=== PATIENT | male | born 1985 | race American Indian/Alaskan Native ===

== ENCOUNTER 2016-09-06 10:08 | Emergency (ER) | payer MEDICAID, OTHER ==
--- NOTE | 2016-09-06 10:41 | C.PDOC ---
History Of Present Illness 31 yr old male presents to the ER with complaints of diffuse abdominal pain and vomiting since 5pm last night. Patient states he "ate some bad chicken" around 1pm yesterday. States he believes the chicken was not thoroughly cooked. Patient denies any medical history, surgical history, alcohol use, drug use, diarrhea, dysuria, weakness or numbness. Time Seen by Provider: 09/06/16 10:25 Chief Complaint (Nursing): Abdominal Pain History Per: Patient History/Exam Limitations: no limitations Onset/Duration Of Symptoms: Sudden Onset (Last night around 5pm ) Past Medical History Reviewed: Historical Data, Nursing Documentation, Vital Signs Vital Signs: Last Vital Signs Temp 98.5 F 09/06/16 15:52 Pulse 87 09/06/16 15:52 Resp 17 09/06/16 15:52 BP 134/76 09/06/16 15:52 Pulse Ox 99 09/06/16 15:52 - Medical History PMH: Anxiety, Asthma Family History: States: No Known Family Hx - Social History Hx Alcohol Use: No Hx Substance Use: Yes Review Of Systems Except As Marked, All Systems Reviewed And Found Negative. Gastrointestinal: Positive for: Vomiting, Abdominal Pain (Diffuse ). Negative for: Diarrhea Genitourinary: Negative for: Dysuria Neurological: Negative for: Weakness, Numbness Physical Exam - Physical Exam Appears: Non-toxic, No Acute Distress Skin: Warm, Dry Head: Atraumatic, Normacephalic Eye(s): bilateral: Normal Inspection, PERRL, EOMI Oral Mucosa: Moist Throat: Normal, No Erythema, No Exudate, No Drooling Chest: Symmetrical, No Tenderness Cardiovascular: Rhythm Regular, No Murmur Respiratory: Normal Breath Sounds, No Rales, No Rhonchi, No Stridor, No Wheezing Gastrointestinal/Abdominal: Soft, Tenderness (Low abdominal tenderness), No Guarding, No Rebound Extremity: Normal ROM, No Swelling Neurological/Psych: Oriented x3, Normal Speech, Normal Motor ED Course And Treatment - Laboratory Results Result Diagrams: 09/06/16 11:08 09/06/16 11:08 O2 Sat by Pulse Oximetry: 98 - CT Scan/US CT - Abd & Pelvis Other Rad Studies (CT/US): Read By Radiologist, Radiology Report Reviewed CT/US Interpretation: PROCEDURE: CT abdomen pelvis dated 09/06/2016. HISTORY: abdominal pain. COMPARISON: None. TECHNIQUE: Contiguous axial images of the abdomen and pelvis performed following intravenous injection of approximately 100 cc Visipaque 320 contrast material. Coronal and Sagittal reformats generated. Radiation dose: Total exam DLP = 248.69 mGy-cm. This CT exam was performed using one or more of the following dose reduction techniques : Automated exposure control, adjustment of the mA and/or kV according to patient size, and/or use of iterative reconstruction technique. FINDINGS: LOWER THORAX: Lung bases clear. No infiltrate effusion or basilar pneumothorax. Tiny hiatal hernia. LIVER: Liver exhibits normal size measuring approximately 16 cm in CC dimension. No obvious hepatic mass or collection however there does appear to be some very minimal diffuse fatty hepatic infiltration. . . Portal and splenic veins are opacified. GALLBLADDER AND BILE DUCTS: Unremarkable. PANCREAS: The the there are no obvious pancreatic masses or collections. Pancreatic duct is visible lobe does not appear significantly dilated. SPLEEN: Spleen exhibits normal size and attenuation pattern. ADRENALS: No adrenal lesions. KIDNEYS AND URETERS: Kidneys demonstrate symmetric nephrograms. No evidence of nephrolithiasis or hydronephrosis. Tiny low-attenuation focus post oral lateral and superior margin cortex right kidney likely representing cyst. BLADDER: Urinary bladder is markedly distended. Rule out urinary retention and/or bladder outlet obstruction. REPRODUCTIVE: Prostate gland measures approximately 3.2 cm in transverse dimension. APPENDIX: Appendix is not seen with any certainty on this exam however no definitive inflammatory changes right lower quadrant of the abdomen. BOWEL: Evaluation of the bowel is limited due to the lack of oral contrast material. Stomach is incompletely distended which presumably accounts for thick-walled appearance. Gastritis not excluded. Visualized loops of small bowel exhibit normal contour and caliber. No evidence acute mechanical small bowel obstruction. Stool and air seen throughout the colon. No definitive mural wall thickening. PERITONEUM: Unremarkable. No fluid collection. No free air. LYMPH NODES: Unremarkable. No enlarged lymph nodes. VASCULATURE: Unremarkable. No aortic aneurysm. BONES: Osseous structures intact. OTHER FINDINGS: None. IMPRESSION: Mild fatty hepatic infiltration. Probable tiny cortical cyst upper pole right kidney. Marked urinary bladder distention; rule out urinary retention or bladder outlet obstruction. Appendix is not seen with any certainty on this exam however no obvious inflammatory changes right lower quadrant of the abdomen. Findings discussed with Dr. Jung at approximately 1:17 p.m. with written down and read back verification. Medical Decision Making Medical Decision Making: PLAN: * CT - Abd & Pelvis * CBC * CMP * Urinalysis * Morphine IVP * Zofran IVP * Sodium Chloride IV 1518 susp food poisning vs AGE. the pt feels much better. abdomen is soft and non-tender. he is comfortable w dc. follow up and return precautions advised. Disposition - Disposition Referrals: [facility] [Outside] Disposition: HOME/ ROUTINE Disposition Time: 15:18 Condition: IMPROVED Additional Instructions: Please follow up with your doctor. Return to the ER for any worsening symptoms, fever, or for any other concerns. Prescriptions: Ondansetron ODT [Zofran ODT] 4 mg PO Q4H PRN #10 odt PRN Reason: Nausea/Vomiting Forms: General Discharge Instructions - Clinical Impression Clinical Impression: Nausea and vomiting, Abdominal pain - Scribe Statement The provider has reviewed the documentation as recorded by the Roelibe Kathy Narayan Provider Attestation: All medical record entries made by the Roelibe were at my direction and personally dictated by me. I have reviewed the chart and agree that the record accurately reflects my personal performance of the history, physical exam, medical decision making, and the department course for this patient. I have also personally directed, reviewed, and agree with the discharge instructions and disposition.
[2016-09-06] MEDS ORDERED: Sodium Chloride 0.9% 1,000 ML IV ONE ×2 (10:42→13:50)
[2016-09-06] MEDS ORDERED: Sodium Chloride 0.9% 1,000 ML ONE ×2 (11:08→13:55)
[2016-09-06 11:15] LABS: BASO % 0.4 % (0.0-2.0); EOS % 0.1 % (0.0-4.0); HEMOGLOBIN 14.6 g/dL (12.0-18.0); LYMPH # 1.5 K/uL (1.0-4.3); LYMPH % 17.5 % (20.0-40.0); MEAN CELL VOLUME 88.1 fL (80.0-94.0); MEAN CORPUSCULAR HEMOGLOBIN 29.5 pg (27.0-31.0); MEAN CORPUSCULAR HGB CONC 33.4 g/dL (33.0-37.0); MEAN PLATELET VOLUME 7.6 fL (7.2-11.7); MONO # 0.6 K/uL (0.0-0.8); MONO % 6.8 % (0.0-10.0); NEUT # 6.3 K/uL (1.8-7.0); NEUT % 75.2 % (50.0-75.0); RBC 4.96 Mil/uL (4.40-5.90); WHITE BLOOD COUNT 8.4 K/uL (4.8-10.8)
[2016-09-06 11:17] LABS: URINE BILIRUBIN NEGATIVE (NEGATIVE); URINE BLOOD 1+ (NEGATIVE); URINE CLARITY Clear (Clear); URINE COLOR Straw (YELLOW); URINE GLUCOSE (UA) NORMAL (Normal); URINE LEUKOCYTE ESTERASE NEG Leu/uL (Negative); URINE NITRATE NEGATIVE (NEGATIVE); URINE PROTEIN NEGATIVE (NEGATIVE); URINE UROBILINOGEN NORMAL mg/dL (0.2-1.0)
[2016-09-06 11:22] LABS: ALBUMIN 4.5 g/dL (3.5-5.0)
[2016-09-06 11:25] LABS: ALB/GLOB RATIO 1.4 (1.0-2.1); AST/SGOT 32 U/L (17-59); GFR AFRICAN-AMERICAN > 60; GFR NON-AFRICAN AMERICAN > 60
[2016-09-06 11:26] LABS: ALT/SGPT 20 U/L (21-72); BLOOD UREA NITROGEN 15 mg/dL (9-20); CALCIUM 9.6 mg/dl (8.6-10.4); LIPASE 38 U/L (23-300)
[2016-09-06] MEDS ORDERED: Iodixanol 320 MG/ML 100 ML BOTTLE IV ONE (12:30)
--- NOTE | 2016-09-06 13:20 | CT ---
PROCEDURE: CT abdomen pelvis dated 09/06/2016. HISTORY: abdominal pain COMPARISON: None. TECHNIQUE: Contiguous axial images of the abdomen and pelvis performed following intravenous injection of approximately 100 cc Visipaque 320 contrast material. Coronal and Sagittal reformats generated. Radiation dose: Total exam DLP = 248.69 mGy-cm. This CT exam was performed using one or more of the following dose reduction techniques: Automated exposure control, adjustment of the mA and/or kV according to patient size, and/or use of iterative reconstruction technique. FINDINGS: LOWER THORAX: Lung bases clear. No infiltrate effusion or basilar pneumothorax. Tiny hiatal hernia. LIVER: Liver exhibits normal size measuring approximately 16 cm in CC dimension. No obvious hepatic mass or collection however there does appear to be some very minimal diffuse fatty hepatic infiltration. . . Portal and splenic veins are opacified. GALLBLADDER AND BILE DUCTS: Unremarkable. PANCREAS: The the there are no obvious pancreatic masses or collections. Pancreatic duct is visible lobe does not appear significantly dilated. SPLEEN: Spleen exhibits normal size and attenuation pattern. ADRENALS: No adrenal lesions. KIDNEYS AND URETERS: Kidneys demonstrate symmetric nephrograms. No evidence of nephrolithiasis or hydronephrosis. Tiny low-attenuation focus post oral lateral and superior margin cortex right kidney likely representing cyst BLADDER: Urinary bladder is markedly distended. Rule out urinary retention and/or bladder outlet obstruction. REPRODUCTIVE: Prostate gland measures approximately 3.2 cm in transverse dimension. APPENDIX: Appendix is not seen with any certainty on this exam however no definitive inflammatory changes right lower quadrant of the abdomen. BOWEL: Evaluation of the bowel is limited due to the lack of oral contrast material. Stomach is incompletely distended which presumably accounts for thick-walled appearance. Gastritis not excluded. Visualized loops of small bowel exhibit normal contour and caliber. No evidence acute mechanical small bowel obstruction. Stool and air seen throughout the colon. No definitive mural wall thickening. PERITONEUM: Unremarkable. No fluid collection. No free air. LYMPH NODES: Unremarkable. No enlarged lymph nodes. VASCULATURE: Unremarkable. No aortic aneurysm. BONES: Osseous structures intact. OTHER FINDINGS: None. IMPRESSION: Mild fatty hepatic infiltration. Probable tiny cortical cyst upper pole right kidney. Marked urinary bladder distention; rule out urinary retention or bladder outlet obstruction. Appendix is not seen with any certainty on this exam however no obvious inflammatory changes right lower quadrant of the abdomen. Findings discussed with Dr. Jung at approximately 1:17 p.m. with written down and read back verification.
[2016-09-06 15:54] VITALS: BP 134/76; PULSE 87; RESP 17; TEMP 98.5
[2016-09-06 19:45] VITALS: O2SAT 98
== END 2016-09-06 15:54 | disposition home or self-care (01) ==
LOC: C.ER 10:08
DX: R10.84 Generalized abdominal pain (principal); R11.2 Nausea with vomiting, unspecified
CPT/HCPCS: 74177; 80053; 81001; 83690; 85025; 96361; 96374; 96375; 96376; 99285; J2270; J2405; J7040; Q9967